=== PATIENT | male | born 1960 | race Caucasian/White ===

== ENCOUNTER 2020-08-30 03:54 | Inpatient (IN) | payer OTHER, SELFPAY ==
[2020-08-30 04:16] LABS: Absolute Lymphocytes (CBC) 2.1 K/uL (0.7-4.9); Basophils % 1.4 % (0-1.3); Hematocrit 46.2 % (39.6-49.0); Lymphocytes % 40.9 % (15.3-44.8); MPV 8.9 fL (7.6-11.3); RBC Red Blood Cell Count 5.29 M/uL (4.33-5.43)
[2020-08-30 04:18] LABS: Protime INR 0.99
--- NOTE | 2020-08-30 04:19 | ER ---
Nurse's Notes [facility] Name: Ricki Cunningham Age: 59 yrs Sex: Male : 1960 Arrival Date: 08/30/2020 Time: 03:56 Bed 7 Private MD: Diagnosis: Atrial fibrillation and flutter-rvr;Dizziness and giddiness;Unspecified kidney failure-insufficency Presentation: 08/30 03:57 Chief complaint: EMS states: Called for patient woken up out of sleep with lp1 palpitations; hx of Atrial fibrillation; Reports dizziness with standing; Denies chest pain; Per EMS, HR 80-120, stable BP. Coronavirus screen: Client denies travel out of the [place] in the last 14 days. At this time, the client does not indicate any symptoms associated with coronavirus-19. Ebola Screen: No symptoms or risks identified at this time. Risk Assessment: Do you want to hurt yourself or someone else? Patient reports no desire to harm self or others. Onset of symptoms was August 30, 2020. 03:57 Method Of Arrival: EMS: [facility] lp1 03:57 Acuity: RANDOLPH 3 lp1 04:27 Initial Sepsis Screen: Does the patient meet any 2 criteria? No. Patient's initial mg2 sepsis screen is negative. Does the patient have a suspected source of infection? No. Patient's initial sepsis screen is negative. Triage Assessment: 04:27 General: Appears in no apparent distress. comfortable, Behavior is calm, cooperative. mg2 Pain: Denies pain. Historical: - Allergies: 04:00 No Known Allergies; lp1 - Home Meds: 04:00 Metoprolol Tartrate Oral [Active]; Simvastatin Oral [Active]; lp1 - PMHx: 04:00 Atrial Fib; lp1 - PSHx: 04:00 Knee surgery; lp1 - Immunization history:: Adult Immunizations up to date. - Family history:: not pertinent. - Social history:: Smoking status: unknown. Screenin:00 Abuse screen: Denies threats or abuse. Denies injuries from another. Nutritional lp1 screening: No deficits noted. Tuberculosis screening: No symptoms or risk factors identified. 04:27 Fall Risk IV access (20 points). mg2 Assessment: 04:15 General: Appears in no apparent distress. comfortable, Behavior is calm, cooperative. mg2 Pain: Denies pain. 04:15 Neuro: Level of Consciousness is awake, alert, obeys commands, Oriented to person, mg2 place, time, situation. Cardiovascular: Capillary refill < 3 seconds Patient's skin is warm and dry. Rhythm is atrial fibrillation. Respiratory: Airway is patent Respiratory effort is even, unlabored, Respiratory pattern is regular, symmetrical. GI: No signs and/or symptoms were reported involving the gastrointestinal system. : No signs and/or symptoms were reported regarding the genitourinary system. EENT: No signs and/or symptoms were reported regarding the EENT system. Derm: Skin is intact, is healthy with good turgor, Skin is pink, warm \T\ dry. normal. Musculoskeletal: Circulation, motion, and sensation intact. Capillary refill < 3 seconds. Vital Signs: 04:02 Weight 111.13 kg (R); Height 6 ft. 4 in. (193.04 cm); lp1 04:24 BP 114 / 90; Pulse 85; Resp 18; Temp 98.6(TE); Pulse Ox 100% on R/A; mg2 04:46 BP 109 / 77; Pulse 84; Resp 18; Temp 98.5; Pulse Ox 100% on R/A; Pain 0/10; mg2 04:02 Body Mass Index 29.82 (111.13 kg, 193.04 cm) lp1 ED Course: 03:56 Patient arrived in ED. mg2 03:59 Juvenal Garcia MD is Attending Physician. ofe 03:59 Triage completed. lp1 03:59 Arm band placed on. lp1 04:00 Patient has correct armband on for positive identification. Placed in gown. Bed in low lp1 position. personnel monitor on. Pulse ox on. NIBP on. 04:09 Wade Lind, BREANA is Primary Nurse. mg2 04:15 Inserted saline lock: 20 gauge in left antecubital area, using aseptic technique. Blood mg2 collected. 04:18 XRAY Chest (1 view) In Process Unspecified. EDMS 04:18 Pearl Martines MD is Hospitalizing Provider. ofe 04:25 No provider procedures requiring assistance completed. mg2 04:46 Patient admitted, IV remains in place. mg2 Administered Medications: 04:12 Not Given (Duplicate Order): Lopressor 5 mg IVP once; Hold for SBP <100 or HR <60. ofe 04:20 Drug: Lopressor 2.5 mg Route: IVP; Site: left antecubital; mg2 04:35 Follow up: Response: No adverse reaction mg2 04:24 Drug: Lopressor (metoprolol TARTRATE) 50 mg Route: PO; mg2 04:35 Follow up: Response: No adverse reaction mg2 04:24 Drug: Lovenox 1 mg/kg Route: Sub-Q; Site: right lower abdomen; mg2 04:35 Follow up: Response: No adverse reaction mg2 04:26 Drug: Lopressor 2.5 mg Route: IVP; Site: left antecubital; mg2 04:35 Follow up: Response: No adverse reaction mg2 Outcome: 04:19 Decision to Hospitalize by Provider. ofe 04:49 Admitted to Med/surg accompanied by tech, via stretcher, room 232, with chart, Report mg2 called to BREANA Awad 04:49 Condition: stable 04:49 Instructed on the need for admit, Demonstrated understanding of instructions. 04:55 Patient left the ED. mg2 Signatures: Dispatcher [employer] EDJuvenal Aguero MD MD cha Pena, Laura, RN RN lp1 Wade Lind RN RN mg2
--- NOTE | 2020-08-30 04:19 | EDPHYS ---
Physician Documentation [facility] Name: Ricki Cunningham Age: 59 yrs Sex: Male : 1960 Arrival Date: 08/30/2020 Time: 03:56 Bed 7 Private MD: ED Physician Juvenal Garcia HPI: 08/30 04:13 This 59 yrs old Male presents to ER via EMS with complaints of a trial ofe fibrillation, dizzy. 04:13 The patient presents with a history of irregular heart beat, heart racing. Context: The ofe symptoms occur at rest. Onset: The symptoms/episode began/occurred just prior to arrival. Modifying factors: The symptoms are aggravated by nothing. The symptoms are alleviated by nothing. Associated signs and symptoms: The patient has no apparent associated signs or symptoms. Severity of symptoms: At their worst the symptoms were moderate in the emergency department the symptoms are unchanged. The patient has experienced similar episodes in the past, a few times. Historical: - Allergies: 04:00 No Known Allergies; lp1 - Home Meds: 04:00 Metoprolol Tartrate Oral [Active]; Simvastatin Oral [Active]; lp1 - PMHx: 04:00 Atrial Fib; lp1 - PSHx: 04:00 Knee surgery; lp1 - Immunization history:: Adult Immunizations up to date. - Family history:: not pertinent. - Social history:: Smoking status: unknown. ROS: 04:13 Constitutional: Negative for fever, chills, and weight loss, Eyes: Negative for injury, ofe pain, redness, and discharge, ENT: Negative for injury, pain, and discharge, Neck: Negative for injury, pain, and swelling, Respiratory: Negative for shortness of breath, cough, wheezing, and pleuritic chest pain, Abdomen/GI: Negative for abdominal pain, nausea, vomiting, diarrhea, and constipation, Back: Negative for injury and pain, : Negative for injury, bleeding, discharge, and swelling, MS/Extremity: Negative for injury and deformity, Skin: Negative for injury, rash, and discoloration, Psych: Negative for depression, anxiety, suicide ideation, homicidal ideation, and hallucinations, Allergy/Immunology: Negative for hives, rash, and allergies, Endocrine: Negative for neck swelling, polydipsia, polyuria, polyphagia, and marked weight changes, Hematologic/Lymphatic: Negative for swollen nodes, abnormal bleeding, and unusual bruising. 04:13 Cardiovascular: Positive for palpitations. 04:13 Neuro: Positive for dizziness. Exam: 04:13 Constitutional: This is a well developed, well nourished patient who is awake, alert, ofe and in no acute distress. Head/Face: Normocephalic, atraumatic. Eyes: Pupils equal round and reactive to light, extra-ocular motions intact. Lids and lashes normal. Conjunctiva and sclera are non-icteric and not injected. Cornea within normal limits. Periorbital areas with no swelling, redness, or edema. ENT: Nares patent. No nasal discharge, no septal abnormalities noted. Tympanic membranes are normal and external auditory canals are clear. Oropharynx with no redness, swelling, or masses, exudates, or evidence of obstruction, uvula midline. Mucous membranes moist. Neck: Trachea midline, no thyromegaly or masses palpated, and no cervical lymphadenopathy. Supple, full range of motion without nuchal rigidity, or vertebral point tenderness. No Meningismus. Chest/axilla: Normal chest wall appearance and motion. Nontender with no deformity. No lesions are appreciated. Respiratory: Lungs have equal breath sounds bilaterally, clear to auscultation and percussion. No rales, rhonchi or wheezes noted. No increased work of breathing, no retractions or nasal flaring. Abdomen/GI: Soft, non-tender, with normal bowel sounds. No distension or tympany. No guarding or rebound. No evidence of tenderness throughout. Back: No spinal tenderness. No costovertebral tenderness. Full range of motion. Male : Normal genitalia with no discharge or lesions. Skin: Warm, dry with normal turgor. Normal color with no rashes, no lesions, and no evidence of cellulitis. MS/ Extremity: Pulses equal, no cyanosis. Neurovascular intact. Full, normal range of motion. Neuro: Awake and alert, GCS 15, oriented to person, place, time, and situation. Cranial nerves II-XII grossly intact. Motor strength 5/5 in all extremities. Sensory grossly intact. Cerebellar exam normal. Normal gait. Psych: Awake, alert, with orientation to person, place and time. Behavior, mood, and affect are within normal limits. 04:13 Cardiovascular: Rate: tachycardic, Rhythm: irregularly irregular, Pulses: Pulses are 4+ in bilateral radial, brachial, femoral, popliteal, posterior tibial and and dorsalis pedis arteries.. Heart sounds: normal, Edema: is not appreciated, JVD: is not appreciated. 04:13 Musculoskeletal/extremity: DVT Exam: No signs of deep vein thrombosis. no pain, no swelling, no tenderness, negative Homans' sign noted on exam, no appreciated bluish discoloration, no erythema, no increased warmth. Vital Signs: 04:02 Weight 111.13 kg (R); Height 6 ft. 4 in. (193.04 cm); lp1 04:24 BP 114 / 90; Pulse 85; Resp 18; Temp 98.6(TE); Pulse Ox 100% on R/A; mg2 04:46 BP 109 / 77; Pulse 84; Resp 18; Temp 98.5; Pulse Ox 100% on R/A; Pain 0/10; mg2 04:02 Body Mass Index 29.82 (111.13 kg, 193.04 cm) lp1 MDM: 03:59 Patient medically screened. ofe 04:16 Differential diagnosis: arrythmia, dehydration. Data reviewed: vital signs, nurses ofe notes, EMS record, lab test result(s), EKG, radiologic studies, plain films. Data interpreted: groundwater monitoring technician: rate is 120 beats/min, rhythm is atrial fibrillation, Pulse oximetry: on room air is 100 %. Test interpretation: by ED physician or midlevel provider: ECG, plain radiologic studies. Counseling: I had a detailed discussion with the patient and/or guardian regarding: the historical points, exam findings, and any diagnostic results supporting the discharge/admit diagnosis, the presence of at least one elevated blood pressure reading (>120/80) during this emergency department visit, lab results, radiology results, the need for further work-up and treatment in the hospital. 08/30 03:56 Order name: Basic Metabolic Panel; Complete Time: 04:42 mg2 08/30 03:56 Order name: CBC with Diff; Complete Time: 04:29 mg2 08/30 03:56 Order name: LFT's; Complete Time: 04:42 mg2 08/30 03:56 Order name: Magnesium; Complete Time: 04:42 mg2 08/30 03:56 Order name: NT PRO-BNP; Complete Time: 04:42 mg2 08/30 03:56 Order name: PT-INR; Complete Time: 04:29 [facility] [place] 03:56 Order name: Troponin (emerg Dept Use Only); Complete Time: 04:42 [facility] [place] 03:56 Order name: XRAY Chest (1 view[place] [facility] [place] 04:00 Order name: TSH [facility] 08/30 04:00 Order name: UDS; Complete Time: 04:42 [facility] 08/30 04:18 Order name: Urine Dipstick--Ancillary (enter results) [facility] 08/30 03:56 Order name: EKG; Complete Time: 03:57 [facility] [place] 03:56 Order name: Cardiac monitoring; Complete Time: 04:10 [facility] [place] 03:56 Order name: EKG - Nurse/Tech; Complete Time: 04:10 [facility] [place] 03:56 Order name: IV Saline Lock; Complete Time: 04:10 [facility] [place] 03:56 Order name: Labs collected and sent; Complete Time: 04:10 [facility] [place] 03:56 Order name: O2 Per Protocol; Complete Time: 04:10 [facility] [place] 03:56 Order name: O2 Sat Monitoring; Complete Time: 04:10 [facility] [place] 04:25 Order name: CONS Physician Consult EDMS Administered Medications: 04:12 Not Given (Duplicate Order): Lopressor 5 mg IVP once; Hold for SBP <100 or HR <60. ofe 04:20 Drug: Lopressor 2.5 mg Route: IVP; Site: left antecubital; mg2 04:35 Follow up: Response: No adverse reaction mg2 04:24 Drug: Lopressor (metoprolol TARTRATE) 50 mg Route: PO; mg2 04:35 Follow up: Response: No adverse reaction mg2 04:24 Drug: Lovenox 1 mg/kg Route: Sub-Q; Site: right lower abdomen; mg2 04:35 Follow up: Response: No adverse reaction mg2 04:26 Drug: Lopressor 2.5 mg Route: IVP; Site: left antecubital; mg2 04:35 Follow up: Response: No adverse reaction mg2 Disposition: 08/30/20 04:19 Hospitalization ordered by Pearl Martines for Observation. Preliminary diagnosis are Atrial fibrillation and flutter - rvr, Dizziness and giddiness, Unspecified kidney failure - insufficency . - Bed requested for Telemetry/MedSurg (observation). - Status is Observation. mg2 - Condition is Fair. - Problem is new. - Symptoms have improved. Signatures: Dispatcher [employer] EDMS Germania Jordan RN RN Juvenal Montes De Oca MD MD cha Pena, Laura, RN RN lp1 Wade Lind RN RN mg2 Corrections: (The following items were deleted from the chart) 04:25 04:19 Hospitalization Ordered by A Bobbi MENA for Observation. Preliminary diagnosis is Atrial fibrillation and flutter - rvr; Dizziness and giddiness. Bed requested for Telemetry/MedSurg (observation). Status is Observation. Condition is Fair. Problem is new. Symptoms have improved. ofe 04:43 04:25 08/30/2020 04:19 Hospitalization Ordered by A Bobbi MENA for Observation. ofe Preliminary diagnosis is Atrial fibrillation and flutter - rvr; Dizziness and giddiness. Bed requested for Telemetry/MedSurg (observation). Status is Observation. Condition is Fair. Problem is new. Symptoms have improved. 04:55 04:43 08/30/2020 04:19 Hospitalization Ordered by A Bobbi MENA for Observation. mg2 Preliminary diagnosis is Atrial fibrillation and flutter - rvr; Dizziness and giddiness; Unspecified kidney failure - insufficency . Bed requested for Telemetry/MedSurg (observation). Status is Observation. Condition is Fair. Problem is new. Symptoms have improved. ofe
[2020-08-30] MEDS ORDERED: METOPROLOL TAR 50 MG TAB ONE (04:29)
[2020-08-30] MEDS ORDERED: METOPROLOL TARTRATE 5 MG/5 ML INJ IV ONE (04:29)
[2020-08-30] MEDS ORDERED: ENOXAPARIN 100 MG/ML SYR SQ ONE (04:29)
[2020-08-30 04:31] LABS: Barbiturates NEGATIVE (NEGATIVE); Benzodiazepines NEGATIVE (NEGATIVE); Cocaine NEGATIVE (NEGATIVE); METHAMPHETAM NEGATIVE (NEGATIVE); Methadone NEGATIVE (NEGATIVE); Opiates NEGATIVE (NEGATIVE); Phencyclidine NEGATIVE (NEGATIVE); THC Cannibis NEGATIVE (NEGATIVE)
[2020-08-30 04:35] LABS: ALT/SGPT 35 U/L (12-78); AST/SGOT 18 U/L (15-37); Albumin 4.3 g/dL (3.4-5.0); Alkaline Phosphatase 54 U/L (45-117); BUN Blood Urea Nitrogen 22 mg/dL (7-18); Bicarbonate 29 mmol/L (21-32); Bilirubin Direct 0.1 mg/dL (0-0.2); Bilirubin Total 0.6 mg/dL (0.2-1.0); Glucose Level 101 mg/dL (74-106); Magnesium 2.2 mg/dL (1.8-2.4); NT PRO-BNP 95 pg/mL (<125); Potassium 4.4 mmol/L (3.5-5.1); Protein, Total 7.5 g/dL (6.4-8.2); Sodium Level 143 mmol/L (136-145); Troponin (Emerg Dept Use Only) < 0.02 ng/mL (0.0-0.045)
[2020-08-30 04:54] LABS: Urine Blood NEGATIVE (NEG); Urine Glucose NEGATIVE (NEG); Urine Protein NEGATIVE (NEG); Urine Specific Gravity 1.015 (1.005-1.030)
[2020-08-30 05:03] LABS: Thyroid Stimulating Hormone 4.46 uIU/mL (0.360-3.740)
[2020-08-30] MEDS ORDERED: ONDANSETRON 4 MG/2 ML VIAL IV PRN (05:19)
[2020-08-30] MEDS ORDERED: ACETAMINOPHEN 325 MG TABLET PO PRN (05:22)
[2020-08-30] MEDS ORDERED: MORPHINE 2 MG/ML SYR IV PRN (05:24)
[2020-08-30 06:11] VITALS: BMI 29.8
[2020-08-30] MEDS ORDERED: ENOXAPARIN 100 MG/ML SYR SQ SCH (09:00)
[2020-08-30] MEDS ORDERED: METOPROLOL TAR 50 MG TAB PO SCH (09:00)
[2020-08-30] MEDS ORDERED: ASPIRIN EC 81 MG TAB PO SCH (09:00)
[2020-08-30] MEDS ORDERED: FAMOTIDINE 20 MG/2 ML VIAL IV SCH (09:00)
[2020-08-30] MEDS ORDERED: SOTALOL HCL 80 MG TAB PO ONE (09:16)
--- NOTE | 2020-08-30 09:40 | RAD REPORT ---
EXAM DESCRIPTION: RAD - Chest Single View - 08/30/2020 4:19 am CLINICAL HISTORY: palpitation COMPARISON: Portable March 2014 TECHNIQUE: AP portable chest image was obtained 08/30/2020 4:19 am . FINDINGS: Lungs are underinflated compared to the prior study. No peripheral mass or consolidation. No significant failure or volume overload suspected. This shallow inspiration accentuates interstitia l pattern. Minimal prominence of the left base interstitial pattern is doubtful as acute infiltrate g iven the clinical presentation. Heart and vasculature are normal. No measurable pleural effusion and no pneumothorax. No acute bony abnormality seen. No acute aortic findings suspected. IMPRESSION: No acute cardiopulmonary process.
--- NOTE | 2020-08-30 10:55 | HP ---
Date of Admission: 08/30/2020 Chief Complaint: Palpitation. History Of Present Illness: This is a 59-year-old male patient who was doing fine in his usual state of health until around 2:30 in the morning. He started to have palpitation feeling and that did not subside at all, so he came into emergency room. He felt like he had a difficult time catching his b reath because of this palpitation. No chest pain. The patient says that he feels better now compare d to earlier today, but he still has that fluttering sensation in his chest from time to time. He re ports having brief episodes of palpitations like that in the past, but nothing that lasted this long. Allergies: NO KNOWN ALLERGIES. Review of Systems: Cardiovascular: As mentioned above. All other systems reviewed and negative. Allergies: TO LIDOCAINE, CAUSING LIP SWELLING. Social History: Negative for smoking and alcohol use. Medications: Aspirin 81 mg daily, fenofibrate 135 mg p.o. daily, metoprolol tartrate 50 mg p.o. 2 ti mes a day, omeprazole 20 mg daily, simvastatin 40 mg p.o. at bedtime. Past Medical History: Significant for impaired fasting glucose, hypertension, mixed hyperlipidemia, gastroesophageal reflux disease, diverticulosis, chronic kidney disease stage IIIA, and benign prosta tic hypertrophy. Past Surgical History: Tonsillectomy, vasectomy, spine surgery, surgery on elbow and wris t, as well as knee surgery, and carpal tunnel syndrome surgery. Family History: Significant for father , had prostate and bladder cancer, and he of [place] encephalitis. Mother and sister with cardiac arrhythmia. Physical Examination: Vital Signs: Height 6 feet 4 inches, weight 245 pounds, temperature 97.8, pulse 83, respiratory rate 18, blood pressure 110/81, oxygen saturation 96%. General: Awake, alert, oriented, not in distress. HEENT: Head atraumatic, normocephalic. Conjunctivae nonerythematous. Sclerae white. Mouth, no thr ush or edema noted. Ears/Nose, no mass, lesion, discharge noted. Neck: Supple. No JVD, lymph nodes, bruit, thyromegaly noted. Lungs: Bilateral good equal air entry. Clear to auscultation. No rhonchi. No rales. Heart: Normal heart sounds, no murmur or gallop. Abdomen: Soft, bowel sounds normal. No guarding, rigidity, tenderness, mass, hepatosplenomegaly, dis tention, or bruit noted. Extremities: No leg edema. No calf tenderness. Skin: No rash, ulcer, cellulitis. Lymphatics: No lymph node enlargement in neck, supraclavicular, infraclavicular region. Neuro: No focal neurological deficit. Chest: Unremarkable. External Genitalia: Deferred. Rectal: Deferred. Laboratory Data: White count 5.1, hemoglobin 15.3, platelets . Sodium 143, potassium 4.4, chloride 110, bicarb 29, BUN 22, creatinine 1.52, estimated GFR 47, glucose 101. Liver function vicki ts unremarkable. Troponin less than 0.02. TSH 4.46. Urinalysis negative. Urine toxicology screen negative. EKG; atrial fibrillation. Impression: 1.Atrial fibrillation with rapid ventricular rate. 2.Chronic kidney disease, stage IIIA. 3.Hypertension. 4.Mixed hyperlipidemia. 5.Gastroesophageal reflux disease. 6.Diverticulosis. 7.Benign prostatic hypertrophy. 8.Impaired fasting . Plan: We will go ahead and admit him to the hospital for further evaluation and management of this p bailey. The patient will be admitted to telemetry. We will consult Cardiology, get echo with Francesca mcmahon. We will discontinue his metoprolol and start him on sotalol. The patient has received Lovenox in [facility]. We will discontinue that, last dose was this morning, starting this evening. We will start him on Eliquis 5 mg 2 times a day. I did talk to him about risk and benefit of anticoagulation ther apy compared to aspirin and he is willing to take such medication. Whether he will agree to take a l ulysses time or not that something he will discuss with his , but at least to start with right now, daya silver is willing to take it as prescribed. I will see him tomorrow for followup. ANGELINA/MODL Voice ID: [id number]
--- NOTE | 2020-08-30 11:01 | CON ---
Date of Consultation: 08/30/2020 Reason For Consultation: Atrial fibrillation. History Of Present Illness: Mr. Cunningham is a 59-year-old white male. He is known to me from previous office visits and admission. He has a history of hypertension, dyslipidemia, gastroesophageal reflu x disease, and paroxysmal atrial fibrillation. He has been taking metoprolol and aspirin and has don e well. Has had a negative cardiac workup in the past. He had an episode of atrial fibrillation thi s time that did not get resolved and he came to the emergency room with dizziness, shortness of breat h, atrial fibrillation, rapid ventricular response. He had received beta-blockers and now his heart rate is more controlled, but he remained in atrial fibrillation. He denied any PND, orthopnea, pedal edema, or syncope. Denied any fever or chills or cough. Past Medical History: As stated earlier. Allergies: NONE. Review of Systems: Negative. Social History: Negative. Family History: Negative. Medications: Include aspirin, metoprolol, Zocor, Tricor and Nexium. Physical Examination: Vital Signs: Stable. He was afebrile. He was in atrial fibrillation with rate of 80. HEENT: Negative. Neck: Supple with no bruit. Chest: Clear. Cardiac: Exam revealed atrial fibrillation. Abdomen: Benign. Extremities: Revealed no clubbing, cyanosis, or edema. Diagnostic Data: Showed a creatinine of 1.52. His TSH was 4.4. Rest of the blood work was unremark able. Chest x-ray is negative. Impression And Plan: Atrial fibrillation, now persistent. I think we should switch him to sotalol 8 0 mg 1 p.o. b.i.d. and put him on 1 of the new anticoagulants either Xarelto or Eliquis and I will le ave that up to Dr. Martines. The case was discussed with Dr. Martines. There is an echocardiogram pending f or tomorrow. He should have at least 3 doses of sotalol before he goes home. We will take him off m etoprolol. Regarding his dyslipidemia, hypertension and gastroesophageal reflux disease, he is well controlled. We will continue his present regimen including Zocor, Tricor, and Nexium. Hopefully, he will convert. I will see him in the office early next week. If he does not convert in 21 days, we will probably do a cardioversion. NB/MODL Voice ID: [id number] Report ID: [id number]
[2020-08-30] MEDS ORDERED: RIVAROXABAN 10 MG TABLET PO SCH (17:00)
[2020-08-30] MEDS: SOTALOL HCL 80 MG TAB PO SCH (17:49)
[2020-08-30] MEDS: APIXABAN 5 MG TABLET PO SCH (20:28)
[2020-08-30] MEDS: ATORVASTATIN 20 MG TAB PO SCH (20:29)
[2020-08-30] MEDS ORDERED: SOTALOL HCL 80 MG TAB PO SCH (21:00)
[2020-08-31 05:00] LABS: Absolute Lymphocytes (CBC) 2.1 K/uL (0.7-4.9); Basophils % 0.8 % (0-1.3); Hematocrit 46.9 % (39.6-49.0); Lymphocytes % 38.4 % (15.3-44.8); MPV 9.2 fL (7.6-11.3); RBC Red Blood Cell Count 5.48 M/uL (4.33-5.43)
[2020-08-31 05:07] LABS: Potassium 4.7 mmol/L (3.5-5.1)
[2020-08-31] MEDS: SOTALOL HCL 80 MG TAB PO SCH ×2 (05:28→17:12)
[2020-08-31] MEDS: PANTOPRAZOLE 40MG TABLET PO SCH (08:29)
[2020-08-31] MEDS: APIXABAN 5 MG TABLET PO SCH ×2 (08:29→21:15)
[2020-08-31] MEDS ORDERED: NA CHLORIDE 0.9% 500 ML IV ONE ×2 (11:54→13:26)
[2020-08-31] MEDS: NA CHLORIDE 0.9% 1,000 ML IV SCH (14:49)
--- NOTE | 2020-08-31 14:52 | ECHO ---
HEIGHT: 6 ft 4 in WEIGHT: 245 lb 0 oz DATE OF STUDY: 08/31/[address]: Juvenal Garcia MD 2-DIMENSIONAL: YES M.MODE: YES DOPPLER: YES COLOR FLOW: YES TDS: PORTABLE: DEFINITY: BUBBLE STUDY: DIAGNOSIS: ATRIAL FIBRILLATION CARDIAC HISTORY: CATHERIZATION: SURGERY: PROSTHETIC VALVE: PACEMAKER: MEASUREMENTS (cm) DIASTOLIC (NORMALS) SYSTOLIC (NORMALS) IVSd 0.9 (0.6-1.2) LA Diam 3.8 (1.9-4.0) LVEF 75% LVIDd 3.3 (3.5-5.7) LVIDs 1.9 (2.0-3.5) %FS 43% LVPWd 1.2 (0.6-1.2) Ao Diam 3.4 (2.0-3.7) 2 DIMENSIONAL ASSESSMENT: RIGHT ATRIUM: NORMAL LEFT ATRIUM: NORMAL RIGHT VENTRICLE: NORMAL LEFT VENTRICLE: NORMAL TRICUSPID VALVE: NORMAL MITRAL VALVE: MILD MITRAL REGURGITATION PULMONIC VALVE: NORMAL AORTIC VALVE: NORMAL PERICARDIAL EFFUSION: NONE AORTIC ROOT: NORMAL LEFT VENTRICULAR WALL MOTION: NORMAL DOPPLER/COLOR FLOW: NORMAL COMMENTS: NORMAL LEFT VENTRICULAR EJECTION FRACTION 55-60% WITH NORMAL WALL MOTION. MILD MITRAL REGURGITATION, MILD PULMONARY INSUFFIENCY, MILD TRICUSPID REGURGTATION. TECHNOLOGIST: CRISTINA REA
[2020-08-31] MEDS: ATORVASTATIN 20 MG TAB PO SCH (21:14)
--- NOTE | 2020-09-01 01:08 | PN ---
Date of Progress Note: 08/31/2020 Subjective: The patient was seen this morning for followup. He was feeling fine, still has occasion al palpitation, but overall feeling much better. Denies any chest pain or shortness of breath. No o ther complaints reported. Objective: Vital Signs: Reviewed. HEENT: Unremarkable. Lungs: Clear to auscultation. Heart: Sounds normal. Abdomen: Soft. Bowel sounds normal. No guarding, rigidity, tenderness, or distention. Extremities: No leg edema. Laboratory Data: White count 5.4, hemoglobin 16.1, platelets 285. Sodium 142, potassium 4.7, chlori de 108, bicarb 30, BUN 20, creatinine 1.49, glucose 104. Impression: 1.Hypotension. 2.Atrial fibrillation with rapid ventricular rate. 3.Chronic kidney disease stage 3. Plan: The patient was stable when I saw him, had an echocardiogram and repeat EKG done. He was nelly nighat for atrial fibrillation, but controlled heart rate, so our plan was to discharge [facility] and just prior to discharge, the patient actually felt really lightheaded, wea k, dizzy, and his blood pressure was systolic 98 with heart rate 120, atrial fibrillation. So, the p atient was really not feeling good at all with this, so discharge was canceled. IV fluid 500 cc bolu s was given and nurse was advised to contact supervisor blooming mill and Dr. Johnson came by to see him and he or dered another bolus of 500 cc of normal saline. So, the patient received total of 1 L of IV fluid collette bridgett and subsequently I have ordered normal saline to be continued at 75 cc/hour. After IV fluid bolu s, the patient has felt better and Dr. Johnson has not suggested any other medication changes at this point, so we will see him tomorrow for followup. Depending on his condition, we will decide further plan of treatment. ANGELINA/MODL Voice ID: [id number] Report ID: [id number]
[2020-09-01] MEDS: NA CHLORIDE 0.9% 1,000 ML IV SCH (02:37)
[2020-09-01] MEDS: PANTOPRAZOLE 40MG TABLET PO SCH (05:29)
[2020-09-01] MEDS: SOTALOL HCL 80 MG TAB PO SCH (05:29)
[2020-09-01 08:51] VITALS: O2SAT 95
[2020-09-01] MEDS: APIXABAN 5 MG TABLET PO SCH (08:57)
[2020-09-01 08:59] VITALS: BP 116/90; TEMP 97.5
--- NOTE | 2020-09-01 10:11 | EKG ---
Test Date: 2020-08-30 Test Time: 04:04:13 Fly Winder: CELINE MEASUREMENT RESULTS: Intervals: Rate: 84 MI: QRSD: 100 QT: 372 QTc: 439 Sunset: P: MI: QRS: 22 T: -16 INTERPRETIVE STATEMENTS: Atrial fibrillation Abnormal ECG Compared to ECG 10/04/2007 19:17:01 Sinus rhythm no longer present T-wave abnormality no longer present Electronically Signed On 09-01-20 10:07:01 CDT by Emiliano Salvador
--- NOTE | 2020-09-01 20:36 | DS ---
Date of Discharge: 09/01/2020 Disposition: Discharged to go home. Physical Examination: HEENT: Unremarkable. Lungs: Clear to auscultation. Heart: Sounds normal. Abdomen: Soft. Bowel sounds normal. No guarding, rigidity, tenderness, or distention. Extremities: No leg edema. Discharge Medications And Instructions: 1.Continue all prior home medication except: a.Stop aspirin. b.Stop metoprolol. 2.Start new medications as below and prescription was sent to his pharmacy from office. New medicat ion includes: a.Eliquis 5 mg 1 tablet by mouth 2 times a day. b.Sotalol 80 mg by mouth 2 times a day. 3.Follow up with Dr. Salvador tomorrow on 09/02/2020 at 8:30 in the morning. 4.Follow up at my office on 09/07/2020 and the patient to call office for this appointment. Hospital Course: A 59-year-old white male patient admitted to the hospital with complaints of palpit ations and difficult time catching his breath. After the patient was evaluated in the emergency room , he was admitted to the hospital with atrial fibrillation with rapid ventricular rate. The patient was started on anticoagulation medication. Initially, it was Lovenox and subsequently, we changed it to Eliquis. Dr. Salvador from Cardiology was consulted. The patient normally takes metoprolol at [facility]. We discontinued that and started him on sotalol. He continues to remain in atrial fibrillation, but his heart rate is much better controlled. He has tolerated sotalol very well. Yesterday, we we re planning to discharge him, but just prior to discharge, he started having problem with feeling lexi lly weak and dizzy, and his systolic blood pressure was 98, pulse rate was 120 with atrial fibrillati on, so his discharge was canceled. We gave him a total of 1 L of IV fluid bolus yesterday and then m aintenance IV fluid was started. This morning when I saw him, he was feeling much better. No dizzin ess. Today, IV fluid was discontinued and the patient ambulated very well without any complaints and he felt comfortable going home, so the patient was discharged to go home today. Echocardiogram done during this hospital stay shows normal ejection fraction. Dr. Salvador will consider electrical card ioversion if he continues to remain in atrial fibrillation after 3 weeks. Final Diagnoses: 1.Paroxysmal atrial fibrillation. 2.Hypertension. 3.Chronic kidney disease stage 3. 4.Hypertension. 5.Mixed hyperlipidemia. 6.Gastroesophageal reflux disease. 7.Diverticulosis. 8.Benign prostatic hypertrophy. 9.Impaired fasting glucose. ANGELINA/MODL Voice ID: [id number] Report ID: [id number]
== END 2020-09-01 12:36 | disposition home or self-care (01) | DRG 310 ==
LOC: ER 03:54 → ERHOLD 04:45 → 2ND 04:54 → OBSVTOIN 10:46
PROVIDERS: ADMIT Internal Medicine; ATTEND Internal Medicine
DX: I48.0 Paroxysmal atrial fibrillation (principal); E78.2 Mixed hyperlipidemia; K21.9 Gastro-esophageal reflux disease without esophagitis; I12.9 Hypertensive chronic kidney disease with stage 1 through stage 4 chronic kidney disease, or unspecified chronic kidney disease; N18.31 Chronic kidney disease, stage 3a; K57.90 Diverticulosis of intestine, part unspecified, without perforation or abscess without bleeding; I95.9 Hypotension, unspecified; N40.0 Benign prostatic hyperplasia without lower urinary tract symptoms; R73.01 Impaired fasting glucose; Z79.899 Other long term (current) drug therapy; Z79.82 Long term (current) use of aspirin; Z88.4 Allergy status to anesthetic agent; Z20.828 Contact with and (suspected) exposure to other viral communicable diseases
CPT/HCPCS: 36415; 71045; 80048; 80076; 80307; 81003; 83735; 83880; 84439; 84443; 84484; 85025; 85610; 93005; 93306; 96372; 96374; 99285; G0378; J1650; J7030; J7040; U0002

== ENCOUNTER 2021-03-19 17:54 | Observation (INO) | payer OTHER ==
[2021-03-19 18:35] LABS: Absolute Lymphocytes (CBC) 2.1 K/uL (0.7-4.9); Basophils % 1.1 % (0-1.3); Hematocrit 44.5 % (39.6-49.0); Lymphocytes % 31.7 % (15.3-44.8); MPV 9.4 fL (7.6-11.3); RBC Red Blood Cell Count 5.17 M/uL (4.33-5.43)
[2021-03-19 18:37] LABS: Protime INR 1.18
[2021-03-19] MEDS ORDERED: NA CHLORIDE 0.9% 1,000 ML ONE ×2 (18:40→19:26)
[2021-03-19] MEDS ORDERED: MAGNESIUM SULFATE 1 gm IVPB 1 GM/100 ML BAG IV ONE (18:40)
[2021-03-19] MEDS ORDERED: SOTALOL HCL 80 MG TAB ONE (18:40)
[2021-03-19] MEDS ORDERED: METOPROLOL TARTRATE 5 MG/5 ML INJ IV ONE (18:40)
[2021-03-19] MEDS ORDERED: APIXABAN 5 MG TABLET ONE (18:40)
[2021-03-19 18:59] LABS: ALT/SGPT 33 U/L (12-78); AST/SGOT 14 U/L (15-37); Alkaline Phosphatase 58 U/L (45-117); BUN Blood Urea Nitrogen 23 mg/dL (7-18); Bicarbonate 25 mmol/L (21-32); Bilirubin Direct < 0.1 mg/dL (0-0.2); Bilirubin Total 0.3 mg/dL (0.2-1.0); Glucose Level 130 mg/dL (74-106); Magnesium 2.3 mg/dL (1.8-2.4); NT PRO-BNP 197 pg/mL (<125); Potassium 3.9 mmol/L (3.5-5.1); Protein, Total 6.6 g/dL (6.4-8.2); Sodium Level 142 mmol/L (136-145); Troponin (Emerg Dept Use Only) < 0.02 ng/mL (0.0-0.045)
--- NOTE | 2021-03-19 19:16 | RAD REPORT ---
EXAM DESCRIPTION: Yelena Single View03/19/2021 6:39 pm CLINICAL HISTORY: Palpitation COMPARISON: 2019 FINDINGS: The lungs appear clear of acute infiltrate. The heart is normal size IMPRESSION: No acute abnormalities displayed
[2021-03-19] MEDS ORDERED: METOPROLOL TARTRATE 5 MG/5 ML INJ IV PRN (19:25)
--- NOTE | 2021-03-19 19:28 | ER ---
Nurse's Notes [facility] Name: Ricki Cunningham Age: 60 yrs Sex: Male : 1960 Arrival Date: 03/19/2021 Time: 17:56 Bed 3 Private MD: Pearl Martines C Diagnosis: Atrial fibrillation and flutter-with rvr;Unspecified kidney failure-insufficency Presentation: 03/19 18:09 Chief complaint: Patient states: "I have a history of having an abnormal heart rate jd3 called A-fib. last time it happened they kept me in the hospital for it back in August.". Coronavirus screen: At this time, the client does not indicate any symptoms associated with coronavirus-19. Ebola Screen: Patient negative for fever greater than or equal to 101.5 degrees Fahrenheit, and additional compatible Ebola Virus Disease symptoms. Initial Sepsis Screen: Does the patient meet any 2 criteria? No. Patient's initial sepsis screen is negative. Does the patient have a suspected source of infection? No. Patient's initial sepsis screen is negative. Risk Assessment: Do you want to hurt yourself or someone else? Patient reports no desire to harm self or others. Onset of symptoms was March 19, 2021. 18:09 Method Of Arrival: Ambulatory jd3 18:09 Acuity: RANDOLPH 3 jd3 Historical: - Allergies: 18:12 No Known Allergies; jd3 - Home Meds: 18:12 Eliquis oral oral [Active]; sotalol Oral [Active]; fenofibrate oral oral [Active]; jd3 Simvastatin Oral [Active]; Omeprazole Oral [Active]; - PMHx: 18:12 Atrial Fib; jd3 - PSHx: 18:12 Knee surgery; jd3 - Immunization history:: Adult Immunizations up to date. - Social history:: Smoking status: Patient denies any tobacco usage or history of. - Family history:: not pertinent. Screenin:56 Abuse screen: Denies threats or abuse. Denies injuries from another. Nutritional jl7 screening: No deficits noted. Tuberculosis screening: No symptoms or risk factors identified. Fall Risk IV access (20 points). Total Del Rosario Fall Scale indicates No Risk (0-24 pts). Assessment: 18:05 General: Appears in no apparent distress. uncomfortable, Behavior is calm, cooperative, jl7 appropriate for age. Pain: Denies pain. Neuro: Level of Consciousness is awake, alert, obeys commands, Oriented to person, place, time, situation. Cardiovascular: Reports palpitations, Patient's skin is warm and dry. Rhythm is atrial fibrillation with rapid ventricular response. Respiratory: Airway is patent Respiratory effort is even, unlabored, Respiratory pattern is regular, symmetrical. Derm: Skin is pink, warm \\T\\ dry. 19:33 General: Appears in no apparent distress. Behavior is calm, cooperative, appropriate ea for age. Pain: Denies pain. Neuro: Level of Consciousness is awake, alert, obeys commands, Oriented to person, place, time, situation. Cardiovascular: Patient's skin is warm and dry. Respiratory: Airway is patent Respiratory effort is even, unlabored, Respiratory pattern is regular, symmetrical. Derm: Skin is pink, warm \\T\\ dry. 20:34 Reassessment: Patient appears in no apparent distress at this time. Patient is alert, rr5 oriented x 3, equal unlabored respirations, skin warm/dry/pink. no complaints made awaiting for covid result. 22:10 Reassessment: Patient and/or family updated on plan of care and expected duration. Pain ea level reassessed. Patient is alert, oriented x 3, equal unlabored respirations, skin warm/dry/pink. Awaiting on room assignment. 22:45 Reassessment: Patient and/or family updated on plan of care and expected duration. Pain ea level reassessed. Patient is alert, oriented x 3, equal unlabored respirations, skin warm/dry/pink. Pt admitted to second floor. Pt left ED via wheelchair tolerating well. Vital Signs: 18:12 BP 137 / 80; Pulse 138; Resp 18 S; Temp 98.5(TE); Pulse Ox 97% on R/A; Weight 105.23 kg jd3 (R); Height 6 ft. 4 in. (193.04 cm) (R); Pain 0/10; 18:56 BP 104 / 74; Pulse 100; Resp 15; Pulse Ox 97% ; jl7 20:03 BP 111 / 73; Pulse 95; Resp 16; Pulse Ox 98% ; rr5 22:30 BP 96 / 75; Pulse 75; Resp 18; Temp 97.4; Pulse Ox 98% ; ea 18:12 Body Mass Index 28.24 (105.23 kg, 193.04 cm) jd3 ED Course: 17:56 Patient arrived in ED. am2 17:56 Pearl Martines MD is Private Physician. am2 17:59 Juvenal Garcia MD is Attending Physician. ofe 18:05 Patient has correct armband on for positive identification. Placed in gown. Bed in low jl7 position. Call light in reach. Side rails up X 1. court recording monitor on. Pulse ox on. NIBP on. 18:10 Triage completed. jd3 18:13 Arm band placed on. jd3 18:18 Carlos Cespedes, BREANA is Primary Nurse. jl7 18:25 Inserted saline lock: 20 gauge in right forearm, using aseptic technique. Blood ap3 collected. 18:25 Initial lab(s) drawn, by ED staff, sent to lab. EKG done, by ED staff, reviewed by devi Garcia MD. 18:42 XRAY Chest (1 view) In Process Unspecified. EDMS 19:12 Pearl Martines MD is Hospitalizing Provider. [facility] 19:33 No provider procedures requiring assistance completed. Patient admitted, IV remains in ea place. Administered Medications: 18:20 Drug: NS 0.9% 500 ml Route: IV; Rate: bolus; Site: right forearm; jl7 19:03 Follow up: Response: No adverse reaction; IV Status: Completed infusion; IV Intake: jl7 500ml 18:25 Drug: Lopressor (metoprolol) 5 mg Route: IVP; Site: right forearm; jl7 19:03 Follow up: Response: No adverse reaction; Cardiac rhythm is unchanged [facility] 18:30 Drug: Eliquis (apixaban) 5 mg Route: PO; jl7 19:03 Follow up: Response: No adverse reaction 7 18:55 Drug: Sotalol 160 mg Route: PO; jl7 19:03 Follow up: Response: No adverse reaction 7 19:02 Drug: NS 0.9% 1000 ml Route: IV; Rate: 125 ml/hr; Site: right forearm; jl7 19:35 Follow up: Response: No adverse reaction; IV Status: Infusion continued upon admission ea 19:02 Drug: Magnesium Sulfate 1 grams Route: IVPB; Infused Over: 1 hrs; Site: right forearm; jl7 22:47 Follow up: Response: No adverse reaction; IV Status: Completed infusion; IV Intake: ea 100ml 19:09 Drug: NS 0.9% 500 ml Route: IV; Rate: bolus; Site: right forearm; jl7 22:47 Follow up: IV Status: Completed infusion; IV Intake: 500ml ea Intake: 19:03 IV: 500ml; Total: 500ml. jl7 22:47 IV: 500ml; Total: 1000ml. ea 22:47 IV: 100ml; Total: 1100ml. ea Outcome: 19:27 Decision to Hospitalize by Provider. ofe 19:34 Instructed on the need for admit, Demonstrated understanding of instructions. ea 22:45 Admitted to Med/surg accompanied by tech, room 207, with chart, Report called to ea Receiving nurse 22:45 Condition: stable 22:46 Patient left the ED. ea Signatures: Dispatcher [employer] EDOK Juvenal Garcia MD MD cha Leal, Jahala, RN RN jl7 Zohreh South Elena RN RN Dada Vega RN RN jd3 Zohreh Sheikh RN RN ap3 Gerald Suh, RN RN rr5
--- NOTE | 2021-03-19 19:28 | EDPHYS ---
Physician Documentation [facility] Name: Ricki Cunningham Age: 60 yrs Sex: Male : 1960 Arrival Date: 03/19/2021 Time: 17:56 Bed 3 Private MD: Pearl Martines C ED Physician Juvenal Garcia HPI: 03/19 18:17 This 60 yrs old Male presents to ER via Ambulatory with complaints of ofe irregular heartbeat. 18:17 The patient presents with a history of irregular heart beat, heart racing. Context: The ofe symptoms occur at rest. Onset: The symptoms/episode began/occurred just prior to arrival. Duration: The patient or guardian reports a single episode. Modifying factors: The symptoms are aggravated by nothing. The symptoms are alleviated by nothing. Associated signs and symptoms: The patient has no apparent associated signs or symptoms. Severity of symptoms: At their worst the symptoms were. The patient has experienced similar episodes in the past, several times. Historical: - Allergies: 18:12 No Known Allergies; jd3 - Home Meds: 18:12 Eliquis oral oral [Active]; sotalol Oral [Active]; fenofibrate oral oral [Active]; jd3 Simvastatin Oral [Active]; Omeprazole Oral [Active]; - PMHx: 18:12 Atrial Fib; jd3 - PSHx: 18:12 Knee surgery; jd3 - Immunization history:: Adult Immunizations up to date. - Social history:: Smoking status: Patient denies any tobacco usage or history of. - Family history:: not pertinent. ROS: 18:17 Constitutional: Negative for fever, chills, and weight loss, Eyes: Negative for injury, ofe pain, redness, and discharge, ENT: Negative for injury, pain, and discharge, Neck: Negative for injury, pain, and swelling, Respiratory: Negative for shortness of breath, cough, wheezing, and pleuritic chest pain, Abdomen/GI: Negative for abdominal pain, nausea, vomiting, diarrhea, and constipation, Back: Negative for injury and pain, : Negative for injury, bleeding, discharge, and swelling, MS/Extremity: Negative for injury and deformity, Skin: Negative for injury, rash, and discoloration, Neuro: Negative for headache, weakness, numbness, tingling, and seizure, Psych: Negative for depression, anxiety, suicide ideation, homicidal ideation, and hallucinations, Allergy/Immunology: Negative for hives, rash, and allergies, Endocrine: Negative for neck swelling, polydipsia, polyuria, polyphagia, and marked weight changes, Hematologic/Lymphatic: Negative for swollen nodes, abnormal bleeding, and unusual bruising. 18:17 Cardiovascular: Positive for palpitations. Exam: 18:17 Constitutional: This is a well developed, well nourished patient who is awake, alert, ofe and in no acute distress. Head/Face: Normocephalic, atraumatic. Eyes: Pupils equal round and reactive to light, extra-ocular motions intact. Lids and lashes normal. Conjunctiva and sclera are non-icteric and not injected. Cornea within normal limits. Periorbital areas with no swelling, redness, or edema. ENT: Nares patent. No nasal discharge, no septal abnormalities noted. Tympanic membranes are normal and external auditory canals are clear. Oropharynx with no redness, swelling, or masses, exudates, or evidence of obstruction, uvula midline. Mucous membranes moist. Neck: Trachea midline, no thyromegaly or masses palpated, and no cervical lymphadenopathy. Supple, full range of motion without nuchal rigidity, or vertebral point tenderness. No Meningismus. Chest/axilla: Normal chest wall appearance and motion. Nontender with no deformity. No lesions are appreciated. Respiratory: Lungs have equal breath sounds bilaterally, clear to auscultation and percussion. No rales, rhonchi or wheezes noted. No increased work of breathing, no retractions or nasal flaring. Abdomen/GI: Soft, non-tender, with normal bowel sounds. No distension or tympany. No guarding or rebound. No evidence of tenderness throughout. Back: No spinal tenderness. No costovertebral tenderness. Full range of motion. Male : Normal genitalia with no discharge or lesions. Skin: Warm, dry with normal turgor. Normal color with no rashes, no lesions, and no evidence of cellulitis. MS/ Extremity: Pulses equal, no cyanosis. Neurovascular intact. Full, normal range of motion. Neuro: Awake and alert, GCS 15, oriented to person, place, time, and situation. Cranial nerves II-XII grossly intact. Motor strength 5/5 in all extremities. Sensory grossly intact. Cerebellar exam normal. Normal gait. Psych: Awake, alert, with orientation to person, place and time. Behavior, mood, and affect are within normal limits. 18:17 Cardiovascular: Rate: tachycardic, Rhythm: regular, Pulses: Pulses are 4+ in bilateral radial, brachial, femoral, popliteal, posterior tibial and and dorsalis pedis arteries.. Heart sounds: normal, normal S1and S2, no S3 or S4, no murmur, no rub, no gallop, murmur, not appreciated, Edema: is not appreciated, JVD: is not appreciated. 18:22 ECG was reviewed by the Attending Physician. ofe Vital Signs: 18:12 BP 137 / 80; Pulse 138; Resp 18 S; Temp 98.5(TE); Pulse Ox 97% on R/A; Weight 105.23 kg jd3 (R); Height 6 ft. 4 in. (193.04 cm) (R); Pain 0/10; 18:56 BP 104 / 74; Pulse 100; Resp 15; Pulse Ox 97% ; jl7 20:03 BP 111 / 73; Pulse 95; Resp 16; Pulse Ox 98% ; rr5 22:30 BP 96 / 75; Pulse 75; Resp 18; Temp 97.4; Pulse Ox 98% ; ea 18:12 Body Mass Index 28.24 (105.23 kg, 193.04 cm) jd3 MDM: 17:59 Patient medically screened. ofe 18:20 Differential diagnosis: arrythmia. Data reviewed: vital signs, nurses notes, lab test [facility] result(s), EKG, radiologic studies, plain films. Data interpreted: director sales: rate is 138 beats/min, rhythm is irregularly irregular. Test interpretation: by ED physician or midlevel provider: ECG, plain radiologic studies. Counseling: I had a detailed discussion with the patient and/or guardian regarding: the historical points, exam findings, and any diagnostic results supporting the discharge/admit diagnosis, lab results. 03/19 18:15 Order name: Basic Metabolic Panel [facility] 03/19 18:15 Order name: CBC with Diff ofe 03/19 18:15 Order name: LFT's [facility] 03/19 18:15 Order name: Magnesium [facility] 03/19 18:15 Order name: NT PRO-BNP; Complete Time: 19:01 [facility] 03/19 18:15 Order name: PT-INR; Complete Time: 18:46 [facility] 03/19 18:15 Order name: Troponin (emerg Dept Use Only); Complete Time: 19:01 [facility] 03/19 18:15 Order name: TSH; Complete Time: 19:01 [facility] 03/19 18:15 Order name: Basic Metabolic Panel; Complete Time: 19:01 [facility] 03/19 18:16 Order name: CBC with Automated Diff; Complete Time: 18:46 [facility] 03/19 18:16 Order name: Liver (Hepatic) Function; Complete Time: 19:01 [facility] 03/19 18:16 Order name: Magnesium; Complete Time: 19:01 [facility] 03/19 19:16 Order name: COVID-19 : Document "Date of Symptom Onset" if Symptomatic. tt3 03/19 20:04 Order name: Urine Dipstick-Ancillary [facility] 03/19 18:15 Order name: XRAY Chest (1 view) [facility] 03/19 18:15 Order name: EKG; Complete Time: 18:16 [facility] 03/19 18:15 Order name: Cardiac monitoring; Complete Time: 18:34 [facility] 03/19 18:15 Order name: EKG - Nurse/Tech; Complete Time: 18:34 [facility] 03/19 18:15 Order name: IV Saline Lock; Complete Time: 18:34 [facility] 03/19 18:15 Order name: Labs collected and sent; Complete Time: 18:34 [facility] 03/19 18:15 Order name: O2 Per Protocol; Complete Time: 18:35 [facility] 03/19 19:19 Order name: CONS Physician Consult [facility] 03/19 20:59 Order name: SARS-COV-2 RT PCR [facility] 03/19 18:15 Order name: O2 Sat Monitoring; Complete Time: 18:35 [facility] EC:22 Rate is 101 beats/min. Rhythm is irregularly irregular. QRS [place] is Normal. MA interval ofe is normal. QRS interval is normal. QT interval is normal. No Q waves. T waves are Normal. No ST changes noted. Clinical impression: Atrial Fibrillation. Interpreted by me. Reviewed by me. Administered Medications: 18:20 Drug: NS 0.9% 500 ml Route: IV; Rate: bolus; Site: right forearm; jl7 19:03 Follow up: Response: No adverse reaction; IV Status: Completed infusion; IV Intake: jl7 500ml 18:25 Drug: Lopressor (metoprolol) 5 mg Route: IVP; Site: right forearm; jl7 19:03 Follow up: Response: No adverse reaction; Cardiac rhythm is unchanged jl7 18:30 Drug: Eliquis (apixaban) 5 mg Route: PO; jl7 19:03 Follow up: Response: No adverse reaction jl7 18:55 Drug: Sotalol 160 mg Route: PO; jl7 19:03 Follow up: Response: No adverse reaction 7 19:02 Drug: NS 0.9% 1000 ml Route: IV; Rate: 125 ml/hr; Site: right forearm; jl7 19:35 Follow up: Response: No adverse reaction; IV Status: Infusion continued upon admission ea 19:02 Drug: Magnesium Sulfate 1 grams Route: IVPB; Infused Over: 1 hrs; Site: right forearm; jl7 22:47 Follow up: Response: No adverse reaction; IV Status: Completed infusion; IV Intake: ea 100ml 19:09 Drug: NS 0.9% 500 ml Route: IV; Rate: bolus; Site: right forearm; jl7 22:47 Follow up: IV Status: Completed infusion; IV Intake: 500ml ea Disposition: 03/19/21 19:27 Hospitalization ordered by Pearl Martines for Observation. Preliminary diagnosis are Atrial fibrillation and flutter - with rvr, Unspecified kidney failure - insufficency. - Bed requested for Telemetry/MedSurg (observation). - Status is Observation. ea - Condition is Fair. - Problem is new. - Symptoms have improved. Signatures: Dispatcher [employer] EDNY Juvenal Garcia MD MD cha Garcia, Cindy RN Carlos Oneil RN RN jl7 Vicki Champagne RN RN ea Davies, Jonathon, RN RN jd3 Corrections: (The following items were deleted from the chart) 22:19 19:27 Hospitalization Ordered by A Bobbi MENA for Observation. Preliminary diagnosis is cg Atrial fibrillation and flutter - with rvr; Unspecified kidney failure - insufficency. Bed requested for Telemetry/MedSurg (observation). Status is Observation. Condition is Fair. Problem is new. Symptoms have improved. ofe 22:46 22:19 03/19/2021 19:27 Hospitalization Ordered by A Bobbi MENA for Observation. ea Preliminary diagnosis is Atrial fibrillation and flutter - with rvr; Unspecified kidney failure - insufficency. Bed requested for Telemetry/MedSurg (observation). Status is Observation. Condition is Fair. Problem is new. Symptoms have improved. cg
[2021-03-19 20:04] LABS: Urine Blood Negative (Negative); Urine Glucose Negative (Negative); Urine Protein Negative (Negative); Urine Specific Gravity 1.025 (1.005-1.030)
[2021-03-19] MEDS ORDERED: APIXABAN 5 MG TABLET PO SCH (22:45)
[2021-03-19] MEDS ORDERED: ONDANSETRON 4 MG/2 ML VIAL IV PRN (22:45)
[2021-03-19] MEDS ORDERED: MORPHINE 4 MG/ML SYR IV PRN (22:45)
[2021-03-19] MEDS ORDERED: ACETAMINOPHEN 500 MG TAB PO PRN (22:45)
[2021-03-19 23:03] VITALS: BMI 29.2
[2021-03-19] MEDS: FAMOTIDINE 20 MG/2 ML VIAL IV SCH (23:54)
[2021-03-20 04:03] LABS: Absolute Lymphocytes (CBC) 1.9 K/uL (0.7-4.9); Hematocrit 41.3 % (39.6-49.0); Lymphocytes % 36.7 % (15.3-44.8); MPV 9.5 fL (7.6-11.3); RBC Red Blood Cell Count 4.76 M/uL (4.33-5.43)
[2021-03-20 04:08] LABS: Potassium 4.1 mmol/L (3.5-5.1)
[2021-03-20] MEDS ORDERED: SOTALOL HCL 80 MG TAB PO SCH (06:00)
[2021-03-20] MEDS: FAMOTIDINE 20 MG/2 ML VIAL IV SCH (08:23)
[2021-03-20] MEDS ORDERED: APIXABAN 5 MG TABLET PO SCH (09:00)
[2021-03-20 09:10] VITALS: BP 131/58; TEMP 97
[2021-03-20 09:38] VITALS: O2SAT 95
--- NOTE | 2021-03-22 08:16 | SS ---
Date of Admission: 03/20/2021 Date of Discharge: 03/20/2021 Chief Complaint: Heart racing, shortness of breath, and dizziness. History Of Present Illness: This is a 60-year-old, pleasant male patient with history atrial fibrillation who was in the hospital in August of last year. Since that time, he has done very well. He has history of palpitation which would last for few seconds and he describes as just fluttering type of sensation in his chest. Yesterday, he was doing fine and he has been taking his medications regularly that also includes sotalol and Eliquis on a regular basis. He has not been sick lately, has not taken any [id number] cough, cold, congestion medication. Yesterday around 2:30 p.m. all of a sudden, he started to have heart racing feeling and he felt like his heart was beating too hard and irregular and along with that, he started to have some shortness of breath and felt really lightheaded and dizzy. This symptoms continued for about 2 hours so subsequently he decided to come to emergency room after he was evaluated in the ER, he was noted to have atrial fibrillation with rapid ventricular rate and he was given 1 dose of IV Lopressor and 5 mg of Eliquis given yesterday evening in the emergency room and he was admitted to the hospital. Overall, his condition has improved this morning when I saw him. He was still in atrial fibrillation, but his heart rate was controlled with 70 to 80 beats per minute and symptomatically he was feeling much better. Medications: Eliquis 5 mg 2 times a day, fenofibrate 135 mg daily, omeprazole 20 mg daily, simvastatin 40 mg daily, sotalol 80 mg, takes 2 tablets in the morning and 1 tablet in the evening. Allergies: TO LIDOCAINE CAUSING LIP SWELLING. Review of Systems: Cardiovascular: As mentioned above. SURGICAL CORSETIER: As mentioned above. All other systems reviewed and negative. Social History: Negative for smoking or alcohol use. Past Medical History: Significant for impaired fasting glucose, hypertension, mixed hyperlipidemia, gastroesophageal reflux disease, diverticulosis, chronic kidney disease stage 3A, benign prostatic hypertrophy, and atrial fibrillation, which is paroxysmal. Past Surgical History: Tonsillectomy, vasectomy, spine surgery, surgery on elbow and wrist as well as knee surgery, carpal tunnel syndrome surgery. Family History: Significant for father and had prostate and bladder cancer and a father of West Nile encephalitis. Mother with cardiac arrhythmia. Physical Examination: Vital Signs: Temperature 97.6, pulse 64, respiratory rate 16, blood pressure 104/58, oxygen saturation 99%, height 6 feet 4 inches. Weight 240 pounds. General: Awake, alert, oriented, not in distress. HEENT: Head atraumatic, normocephalic. Conjunctivae nonerythematous. Sclerae white. Mouth, no thrush or edema noted. Ears/Nose, no mass, lesion, discharge noted. Neck: Supple. No JVD, lymph nodes, bruit, thyromegaly noted. Lungs: Bilateral good equal air entry. Clear to auscultation. No rhonchi. No rales. Heart: Heart sounds normal. Heart rhythm is irregularly irregular. No murmur. No gallop. Abdomen: Soft, bowel sounds normal. No guarding, rigidity, tenderness, mass, hepatosplenomegaly, distention, or bruit noted. Extremities: No leg edema. No calf tenderness. Skin: No rash, ulcer, cellulitis. Lymphatics: No lymph node enlargement in neck, supraclavicular, infraclavicular region. Neuro: No focal neurological deficit. Chest: Unremarkable. External Genitalia: Deferred. Rectal: Deferred. Laboratory Data: Yesterday, white count 6.5, hemoglobin 14.6, platelets 316. Today, white count 5.3, hemoglobin 13.5, platelets 250. INR 1.18. Yesterday, sodium 142, potassium 3.9, chloride 110, bicarb 25, BUN 23, creatinine 1.40, glucose 130. Liver function tests unremarkable. Troponin less than 0.02. TSH 3.68, magnesium 2.3. This morning, sodium 143, potassium 4.1, chloride 111, bicarb 28, BUN 21, creatinine 1.24, glucose 97. Urinalysis negative. COVID-19 test negative. Chest x-ray, no acute cardiopulmonary changes. Hospital Course: The patient was evaluated in emergency room and then he was admitted to the hospital. His condition has remained stable. He is feeling much improved and heart rate is well controlled. Consultation was requested from Dr. Johnson, biomedical service engineer, who is on-call. Details were discussed with him by me as well as from emergency room. Plan is for patient to go with sotalol 160 mg 2 times a day and continue all other medication including Eliquis and for the patient to follow up with biomedical service engineer this coming week on Monday. I have advised him to follow up with his biomedical service engineer, Dr. Salvador and he will communicate with Dr. Salvador regarding further management including possibility of ablation therapy for atrial fibrillation. The patient says he is well aware of that as he had this discussion with biomedical service engineer in the past. The patient's job occasionally requires for him to climb and I have advised him to avoid such activity because of the risk involved in the event if he has any such episode. It will increase his risk of fall and injury, so we will provide him with later to avoid such activity until released by biomedical service engineer in the future. Final Diagnoses: 1. Atrial fibrillation with rapid ventricular rate, paroxysmal. 2. Hypertension. 3. Impaired fasting glucose. 4. Mixed hyperlipidemia. 5. Chronic kidney disease, stage 3A. 6. Gastroesophageal reflux disease. 7. Diverticulosis. 8. Benign prostatic hypertrophy. Discharge Medications And Instructions: 1. Continue all prior home medication except change sotalol 80 mg take 2 tablets 2 times a day. 2. Follow up with Dr. Salvador next week on Monday which is March 22, 2021. 3. Follow up at my office per his scheduled appointment. ANGELINA/JOSSUE Voice ID: [id number] Report ID: [id number] MTDD
== END 2021-03-20 13:06 | disposition home or self-care (01) ==
LOC: ER 17:54 → ERHOLD 19:16 → 2ND 22:38
PROVIDERS: ADMIT Internal Medicine; ATTEND Internal Medicine
DX: I48.0 Paroxysmal atrial fibrillation (principal); I12.9 Hypertensive chronic kidney disease with stage 1 through stage 4 chronic kidney disease, or unspecified chronic kidney disease; N18.31 Chronic kidney disease, stage 3a; I48.92 Unspecified atrial flutter; R73.01 Impaired fasting glucose; E78.2 Mixed hyperlipidemia; K21.9 Gastro-esophageal reflux disease without esophagitis; K57.90 Diverticulosis of intestine, part unspecified, without perforation or abscess without bleeding; N40.0 Benign prostatic hyperplasia without lower urinary tract symptoms; Z20.822 Contact with and (suspected) exposure to COVID-19; Z79.01 Long term (current) use of anticoagulants; Z79.899 Other long term (current) drug therapy; Z88.4 Allergy status to anesthetic agent; Z98.52 Vasectomy status; Z80.42 Family history of malignant neoplasm of prostate; Z80.52 Family history of malignant neoplasm of bladder
CPT/HCPCS: 96365; 96361; 93005 ×2; 85025 ×2; 80048 ×2; 36415; 83735; 85610; 80076; 84443; 81003; 84484 ×3; 83880; 71045; 96375; 99285; 96366; U0003; J3475; J7030 ×2; G0378 ×2

== ENCOUNTER 2023-04-14 06:52 | Day surgery (SDC) | payer OTHER ==
[2023-04-11 14:24] LABS: Absolute Lymphocytes (CBC) 1.7 K/uL (0.7-4.9); Hematocrit 44.8 % (39.6-49.0); Lymphocytes % 31.6 % (15.3-44.8); MPV 8.9 fL (7.6-11.3); RBC Red Blood Cell Count 5.15 M/uL (4.33-5.43)
--- NOTE | 2023-04-11 14:30 | RAD REPORT ---
EXAM DESCRIPTION: RAD - Chest Pa And Lat (2 Views) - 04/11/2023 2:09 pm CLINICAL HISTORY: PRE OP Chest pain. COMPARISON: Chest Single View dated 03/19/2021; Chest Single View dated 08/30/2020; CHEST SINGLE VIEW dated 04/01/2014; CHEST PA AND LAT 2 VIEW dated 12/14/2013 FINDINGS: The lungs are clear. The heart is normal in size. No displaced fractures. IMPRESSION: No acute or concerning finding suspected. The USPSTF recommends annual screening for lung cancer with low-dose CT (LDCT) in adults aged 50 to 80 years who have a 20 pack-year smoking history and currently smoke or have quit within the past 15 years.
[2023-04-11 14:38] LABS: Protime INR 0.97
[2023-04-11 14:49] LABS: Potassium 3.9 mEq/L (3.5-5.1)
--- NOTE | 2023-04-12 07:16 | EKG ---
Test Date: 2023-04-11 Test Time: 13:52:48 6[employer] Grade Teacher: SAGAR MEASUREMENT RESULTS: Intervals: Rate: 71 ID: [id number] QRSD: 170 QT: 384 QTc: 417 [place]: P: 34 ID: [id number] QRS: 43 T: -41 INTERPRETIVE STATEMENTS: Normal sinus rhythm Nonspecific intraventricular block Abnormal ECG Compared to ECG 03/19/2021 18:17:08 Atrial fibrillation no longer present T-wave abnormality no longer present Possible ischemia no longer present Electronically Signed On 04-12-23 07:14:04 CDT by Emiliano Salvador
[2023-04-14] MEDS ORDERED: HEPA 1000U/500MLS 2,000 UNIT/1,000 ML BAG IV ONE (06:54)
[2023-04-14] MEDS ORDERED: LIDOCAINE 1% 20 ML MDV ONE (06:54)
[2023-04-14] MEDS ORDERED: FENTANYL CITR 100 MCG/2 ML ONE (06:55)
[2023-04-14] MEDS ORDERED: MIDAZOLAM HCL 2 MG/2 ML INJ ONE (06:56)
[2023-04-14] MEDS ORDERED: HEPARIN 5000 UNIT/ML 1 ML VIAL ONE (06:56)
[2023-04-14] MEDS ORDERED: HEPARIN 10,000 UNIT/10 ML VIAL IV ONE (06:57)
[2023-04-14] MEDS ORDERED: VERAPAMIL HCL 10 MG/4 ML VIAL IV ONE (06:57)
[2023-04-14] MEDS ORDERED: NITROGLYCERIN 100 MCG/ML SYR (for cath lab use only) IV ONE (06:57)
[2023-04-14] MEDS ORDERED: NITROGLYCERIN/D5W 25 MG/250 ML BTL IV ONE (06:58)
[2023-04-14] MEDS ORDERED: ATROPINE SULF 1 MG/10 ML SYR IV ONE (06:58)
[2023-04-14] MEDS ORDERED: NA CHLORIDE 0.9% 500 ML ONE (07:01)
[2023-04-14] MEDS ORDERED: CLOPIDOGREL 75 MG TABLET ONE (07:03)
[2023-04-14] MEDS ORDERED: TICAGRELOR 90 MG TABLET PO ONE (07:04)
[2023-04-14] MEDS ORDERED: ASPIRIN 325 MG TAB ONE (07:04)
--- NOTE | 2023-04-14 08:52 | OP ---
Date of Procedure: 04/14/2023 Surgeon: TAYLOR CALIX Procedure Performed: Selective coronary angiogram. Indication: Unstable angina. Access: Right radial artery 6-Tajik closed with TR band. Complications: None. Bleeding: Less than 20 mL. Anesthesia: Total sedation time was 20 minutes. Used fentanyl and Versed. Description Of Procedure: After risks, benefits, and alternatives were explained, patient agreed to procedure and signed informed consent. Patient was brought into cardiac catheterization laboratory, prepped and draped in usual sterile fashion. Then, I accessed right radial artery using pediatric mi cropuncture kit and placed 6-Tajik Slender sheath and took 5-Tajik [place] 4.0 catheter in the aortic root over a J-wire and engaged the left main, took standard views in the RCA, took standard views an d the catheter was pushed over the wire into the LV. Measured LVEDP, pullback did not record any gra dient. I removed the catheter and the sheath and placed TR band with good hemostasis. Findings: 1.Left main: Large and normal. 2.LAD: Large and wraps around the apex and totally normal. Normal diagonal branches. 3.Left circumflex: Very large vessel and dominant with proximal 30%, otherwise no significant disea se. 4.RCA: Small, nondominant with proximal 50% stenosis. 5.Normal LVEDP at 9 mmHg. Conclusion: 1.Mild nonobstructive coronary artery disease. 2.Normal LVEDP. Recommendation: Medical management. SR/MODL Voice ID: [id number] Report ID: [id number]
[2023-04-14 11:39] VITALS: BP 129/81
[2023-04-14 11:42] VITALS: O2SAT 99
== END 2023-04-14 09:50 | disposition home or self-care (01) ==
LOC: CCL 06:52
PROVIDERS: ATTEND Internal Medicine
DX: I25.110 Atherosclerotic heart disease of native coronary artery with unstable angina pectoris (principal); I34.0 Nonrheumatic mitral (valve) insufficiency; I42.1 Obstructive hypertrophic cardiomyopathy; I48.0 Paroxysmal atrial fibrillation; I10 Essential (primary) hypertension; E78.2 Mixed hyperlipidemia; K21.9 Gastro-esophageal reflux disease without esophagitis; Z88.4 Allergy status to anesthetic agent; Z88.6 Allergy status to analgesic agent; Z82.49 Family history of ischemic heart disease and other diseases of the circulatory system
CPT/HCPCS: 93005; 85025; 80048; 36415; 85610; 85730; 71046; 93458; 76937; C1893; Q9966; J1644; J2001; J2250; J3010; J7040; J0461